=== PATIENT | female | born 1940 | race Caucasian/White ===

== ENCOUNTER 2020-09-29 12:08 | Outpatient (CLI) | payer MEDICARE, SELFPAY ==
--- NOTE | ~2020-09-29 | XR_ITS ---
EXAMINATION: XR knee RT 3V DATE: 09/29/2020 12:57 INDICATION: Right knee osteoarthritis. TECHNIQUE: 3 views of right knee were obtained. COMPARISON: Right knee radiographs 04/04/2019 FINDINGS: There is varus angulation at the knee. No fracture. There is severe osteoarthritis of media l and patellofemoral compartments and mild osteoarthritis of lateral compartment. There is a moderate -sized knee joint effusion. IMPRESSION: 1. Severe right knee osteoarthritis. 2. Moderate-sized right knee joint effusion. Reviewed, dictated and finalized at location A.
--- NOTE | ~2020-09-29 | XR_ITS ---
EXAMINATION: XR knee LT 3V DATE: 09/29/2020 12:57 INDICATION: Left knee osteoarthritis. TECHNIQUE: 3 views of left knee were obtained. COMPARISON: None. FINDINGS: There is varus angulation at the knee. No fracture. There is severe osteoarthritis of media l and patellofemoral compartment and mild osteoarthritis of lateral compartment. There is a small kne e joint effusion. IMPRESSION: 1. Severe left knee osteoarthritis. 2. Small left knee joint effusion. Reviewed, dictated and finalized at location A.
== END 2020-09-29 12:09 | disposition home or self-care (01) ==
LOC: CHSIMG 12:15
PROVIDERS: PCP Family Medicine; Visit Provider Family Medicine
DX: M17.0 Bilateral primary osteoarthritis of knee (principal)
CPT/HCPCS: 73562

== ENCOUNTER 2021-10-17 14:13 | Outpatient (CLI) | payer MEDICARE, SELFPAY ==
--- NOTE | ~2021-10-17 | XR_ITS ---
XR chest 2V DATE: 10/17/2021 14:31 INDICATION: Cough TECHNIQUE: PA and lateral views COMPARISON: 06/05/2014 2 view chest FINDINGS: Normal heart size. No hilar or mediastinal enlargement. Aortic arch calcification. No pulmo nary infiltrate or consolidation, pleural effusion or pulmonary vascular congestion or pneumothorax. Probable cholecystectomy. Degenerative spurring of the thoracic spine. IMPRESSION: No active cardiopulmonary disease Aortic calcification Reviewed, dictated and finalized at location A.
== END 2021-10-17 14:14 | disposition home or self-care (01) ==
LOC: CHSIMG 14:14
PROVIDERS: PCP Family Medicine; Visit Provider Family Medicine
DX: R05.9 Cough, unspecified (principal)
CPT/HCPCS: 71046

== ENCOUNTER 2023-10-02 08:05 | Outpatient (CLI) | payer MEDICARE, SELFPAY ==
--- NOTE | ~2023-10-02 | XR_ITS ---
Right Knee Technique: AP, lateral, and sunrise views were obtained. Clinical History: Pain Findings: No fracture or dislocation is seen. There is advanced medial compartment degenerative carter e with osteophyte formation and medial compartment narrowing. There is intercondylar notch spurring a nd lateral joint line spurring. There is moderate patellofemoral compartment degenerative spurring. S oft tissues are unremarkable. No joint effusion is seen. Impression: Severe degenerative change of the medial compartment. Moderate degenerative change of the patellofemoral compartment. Mild degenerative change of the lateral compartment. Reviewed, dictated and finalized at location M. Impression: Severe degenerative change of the medial compartment. Moderate degenerative change of the patellofemoral compartment. Mild degenerative change of the lateral compartment.
--- NOTE | ~2023-10-02 | XR_ITS ---
Left Knee Technique: AP, lateral, and sunrise views were obtained. Clinical History: Pain Findings: No fracture or dislocation is seen. There is severe degenerative change of the medial min rtment with marked medial compartment narrowing. There is moderate to advanced patellofemoral compart ment degenerative change. There is mild to moderate lateral compartment degenerative change. Soft tis sues are unremarkable. No joint effusion is seen. Impression: Tricompartment osteoarthritis, severe at the medial and patellofemoral compartment. Reviewed, dictated and finalized at location M. Impression: Tricompartment osteoarthritis, severe at the medial and patellofemoral compartm ent.
== END 2023-10-02 08:06 | disposition home or self-care (01) ==
LOC: CHSIMG 08:07
PROVIDERS: PCP Family Medicine; Visit Provider Orthopaedic Surgery
DX: M25.561 Pain in right knee (principal); M25.562 Pain in left knee; M17.0 Bilateral primary osteoarthritis of knee
CPT/HCPCS: 73564

== ENCOUNTER 2024-11-03 15:06 | Outpatient (CLI) | payer MEDICARE, SELFPAY ==
--- NOTE | ~2024-11-03 | XR_ITS ---
EXAM: XR lumbar spine 2-3V DATE: 11/03/2024 15:30 HISTORY: DORSALGIA,RLQ PAIN TO LOW BACK . COMPARISON: 08/27/2017. FINDINGS: 5 nonrib-bearing lumbar-type vertebral bodies. Pedicles intact. 7 mm retrolistheses at L2- 3 and L4-5. Moderate scoliosis. Vertebral body heights preserved. Multilevel disc space narrowing and marginal osteophytosis, severe at L1-2 through L3-4. Severe lower lumbar facet hypertrophy and scler osis, with interspinous narrowing. Scattered vascular calcifications. Cholecystectomy clips. No fract ure or dislocation. IMPRESSION: Lumbar scoliosis. Grade 1 listheses at L2-3 and L4-5. Multilevel severe lumbar degenerati ve disc disease and facet arthropathy. Reviewed, dictated and finalized at location K. IMPRESSION: Lumbar scoliosis. Grade 1 listheses at L2-3 and L4-5. Multilevel se wu lumbar degenerative disc disease and facet arthropathy.
--- NOTE | ~2024-11-03 | XR_ITS ---
EXAM: XR abdomen obstructive series DATE: 11/03/2024 15:30 HISTORY: CONSTIPATION,RLQ PAIN . COMPARISON: None available. FINDINGS: Clear lung bases. Normal bowel gas pattern. No organomegaly. No abnormal abdominal calcifi cation. Lumbar scoliosis and multilevel lumbar degenerative disc disease. Cholecystectomy clips, and individual clips overlying the right lateral abdomen which may represent displaced surgical clips. Mi ld bilateral hip osteoarthritis. Pelvic enthesopathy. IMPRESSION: No radiographic evidence of obstruction or ileus. Reviewed, dictated and finalized at location K.
--- OUTSIDE RECORDS SUMMARY | 2024-11-03 15:11 | XMS_ITS | Patient Health Record ---
Author Organization [facility] Address [address] [place], [place] [address] Care Team Providers Care Reduction Plant Supervisor Name Role Phone WESLEY LACEY Unavailable [phone] Fransico Orellana Unavailable Unavailable MELISSA SEE Unavailable [phone] Allergies No Known Allergies Reason For Referral No Information Vital Signs Height-cm 172.72 cm 12/13/2023 Weight-kg 88.45 kg 12/13/2023 Height 68 in 12/13/2023 Weight 195. lbs 12/13/2023 BMI 29.65 kg/m2 12/13/2023 Encounters Encounter Location Date Provider Diagnosis [address] [id number] 09/11/2024 LACEY OLSON Tinea unguium B35.1 ; Pain in right toe(s) M79.674 ; Pain in left toe(s) M79.675 and Atherosclerosis of [place] arteries of extremities with intermittent claudication, bilateral legs I70.[address] [id number] 12/13/2023 MELISSA SEE Tinea unguium B35.1 ; Pain in right toe(s) M79.674 ; Pain in left toe(s) M79.675 ; Other hammer toe(s) (acquired), right foot M20.41 ; Other hammer toe(s) (acquired), left foot M20.42 and Unspecified atherosclerosis of [place] arteries of extremities, bilateral legs I70.203 [facility] [address] [place], [place] [id number] 02/14/2024 MELISSA SEE Tinea unguium B35.1 ; Pain in right toe(s) M79.674 ; Pain in left toe(s) M79.675 ; Other hammer toe(s) (acquired), right foot M20.41 ; Other hammer toe(s) (acquired), left foot M20.42 and Unspecified atherosclerosis of [place] arteries of extremities, bilateral legs I70.[address] [id number] 04/17/2024 MELISSA SEE Tinea unguium B35.1 ; Pain in right toe(s) M79.674 ; Pain in left toe(s) M79.675 ; Other hammer toe(s) (acquired), right foot M20.41 ; Other hammer toe(s) (acquired), left foot M20.42 and Unspecified atherosclerosis of [place] arteries of extremities, bilateral legs I70.203 [facility] [address] [place], [place] [id number] 07/10/2024 LACEY OLSON Tinea unguium B35.1 ; Pain in right toe(s) M79.674 ; Pain in left toe(s) M79.675 and Atherosclerosis of [place] arteries of extremities with intermittent claudication, bilateral legs I70.213 Assessments Encounter Date Diagnosis (ICD Code) Assessment Notes Treatment Notes Treatment Clinical Notes Section Notes 12/13/2023 Tinea unguium (ICD-10 - B35.1) Aseptic debridement of elongated thickened nails x 10 using sterile nippers, nails were debrided in length and thickness by 30% utilizing a nail nipper without incident. The patient was educated regarding all treatment options that include topical and oral antifungal treatments. I discussed the options of taking a sample of the nail to confirm diagnosis. Nail clippings were not sent for pathology analysis. The patient was educated why and how the fungal infection evolved in their feet and the patient was given information regarding how to prevent further infection. The patient was told to keep feet dry and change socks. The patient was told to be careful with old shoes and excessive sweating. The patient was educated regarding both OTC and prescription treatments. 12/13/2023 Pain in right toe(s) (ICD-10 - M79.674) 02/14/2024 Tinea unguium (ICD-10 - B35.1) Aseptic debridement of elongated thickened nails x 10 using sterile nippers, nails were debrided in length and thickness by 30% utilizing a nail nipper without incident. The patient was educated regarding all treatment options that include topical and oral antifungal treatments. I discussed the options of taking a sample of the nail to confirm diagnosis. Nail clippings were not sent for pathology analysis. The patient was educated why and how the fungal infection evolved in their feet and the patient was given information regarding how to prevent further infection. The patient was told to keep feet dry and change socks. The patient was told to be careful with old shoes and excessive sweating. The patient was educated regarding both OTC and prescription treatments. 02/14/2024 Pain in right toe(s) (ICD-10 - M79.674) 04/17/2024 Tinea unguium (ICD-10 - B35.1) Aseptic debridement of elongated thickened nails x 10 using sterile nippers, nails were debrided in length and thickness by 30% utilizing a nail nipper without incident. The patient was educated regarding all treatment options that include topical and oral antifungal treatments. I discussed the options of taking a sample of the nail to confirm diagnosis. Nail clippings were not sent for pathology analysis. The patient was educated why and how the fungal infection evolved in their feet and the patient was given information regarding how to prevent further infection. The patient was told to keep feet dry and change socks. The patient was told to be careful with old shoes and excessive sweating. The patient was educated regarding both OTC and prescription treatments. 04/17/2024 Pain in right toe(s) (ICD-10 - M79.674) 07/10/2024 Tinea unguium (ICD-10 - B35.1) FUNGAL TOENAILS: Discussed various treatment options for fungal toenails including debridement, topical antifungals, oral antifungals, toenail avulsion, or toenail matrixectomy. NAIL DEBRIDEMENT: Nails 1-5 Bilateral were debrided extensively with nail nippers and emery board, reducing length and girth to pink healthy tissue with any subungual debris and necrotic tissue removed 07/10/2024 Pain in right toe(s) (ICD-10 - M79.674) 09/11/2024 Tinea unguium (ICD-10 - B35.1) FUNGAL TOENAILS: Discussed various treatment options for fungal toenails including debridement, topical antifungals, oral antifungals, toenail avulsion, or toenail matrixectomy. NAIL DEBRIDEMENT: Nails 1-5 Bilateral were debrided extensively with nail nippers and emery board, reducing length and girth to pink healthy tissue with any subungual debris and necrotic tissue removed 09/11/2024 Pain in right toe(s) (ICD-10 - M79.674) 09/11/2024 Pain in left toe(s) (ICD-10 - M79.675) 07/10/2024 Pain in left toe(s) (ICD-10 - M79.675) 04/17/2024 Pain in left toe(s) (ICD-10 - M79.675) 02/14/2024 Pain in left toe(s) (ICD-10 - M79.675) 12/13/2023 Pain in left toe(s) (ICD-10 - M79.675) 12/13/2023 Other hammer toe(s) (acquired), right foot (ICD-10 - M20.41) The patient was educated regarding how to mechanically stabilize their deformity. The patient was given education about shoe recommendations specific for the condition. The patient was educated about custom orthotics and how appropriate shoes and orthotics can prevent further worsening of the deformity. The patient was educated about how bad shoe habits can worsen the condition. NSAIDS, P.T., injections and other conservative treatments were discussed. Both surgical and non surgical treatments were discussed, but conservative options were emphasized. 02/14/2024 Other hammer toe(s) (acquired), right foot (ICD-10 - M20.41) The patient was educated regarding how to mechanically stabilize their deformity. The patient was given education about shoe recommendations specific for the condition. The patient was educated about custom orthotics and how appropriate shoes and orthotics can prevent further worsening of the deformity. The patient was educated about how bad shoe habits can worsen the condition. NSAIDS, P.T., injections and other conservative treatments were discussed. Both surgical and non surgical treatments were discussed, but conservative options were emphasized. 04/17/2024 Other hammer toe(s) (acquired), right foot (ICD-10 - M20.41) The patient was educated regarding how to mechanically stabilize their deformity. The patient was given education about shoe recommendations specific for the condition. The patient was educated about custom orthotics and how appropriate shoes and orthotics can prevent further worsening of the deformity. The patient was educated about how bad shoe habits can worsen the condition. NSAIDS, P.T., injections and other conservative treatments were discussed. Both surgical and non surgical treatments were discussed, but conservative options were emphasized. 07/10/2024 Atherosclerosis of [place] arteries of extremities with intermittent claudication, bilateral legs (ICD-10 - I70.213) 09/11/2024 Atherosclerosis of [place] arteries of extremities with intermittent claudication, bilateral legs (ICD-10 - I70.213) 04/17/2024 Other hammer toe(s) (acquired), left foot (ICD-10 - M20.42) 02/14/2024 Other hammer toe(s) (acquired), left foot (ICD-10 - M20.42) 12/13/2023 Other hammer toe(s) (acquired), left foot (ICD-10 - M20.42) 12/13/2023 Unspecified atherosclerosis of [place] arteries of extremities, bilateral legs (ICD-10 - I70.203) Patient educated on risks and aggravating factors of PVD, including conservative treatment options such as a diet and exercise regimen to aid in slowing progression of vascular disease 02/14/2024 Unspecified atherosclerosis of [place] arteries of extremities, bilateral legs (ICD-10 - I70.203) Patient educated on risks and aggravating factors of PVD, including conservative treatment options such as a diet and exercise regimen to aid in slowing progression of vascular disease 04/17/2024 Unspecified atherosclerosis of [place] arteries of extremities, bilateral legs (ICD-10 - I70.203) Patient educated on risks and aggravating factors of PVD, including conservative treatment options such as a diet and exercise regimen to aid in slowing progression of vascular disease Plan Of Treatment Next Appt Details Provider Name:CORNELL MARKS, 11/20/2024 08:10:00 AM, [address] [place] [address], [id number], Insurance Providers Payer Name Payer Address Payer Phone Subscriber Number Group Number Insured Name Patient Relationship to Insured Coverage Start Date Coverage End Date Medicare Part B [place] [address] [place] [phone] [id number] Ashley Patel Self - patient is the insured [facility] ([facility]) ATTN CLAIMS [address] [place] [address] [id number] Ashley Patel Self - patient is the insured Medical (General) History Medical History History ICD Code Cancer (type of cancer) Arthritis Sleep apnea Diabetic Heart Disease hypertension
--- OUTSIDE RECORDS SUMMARY | 2024-11-03 15:11 | XMS_ITS ---
Author Organization [facility] Address [address] [place], [place] [id number] Care Team Providers Care Or Scrub Tech Name Role Phone LACEY OLSON Unavailable [phone] Fransico Orellana Unavailable Unavailable REASON FOR VISIT Patient presents for at-risk foot care . The patient has painful toenails that cause difficulty with ambulation and shoegear. The onset is gradual Encounters Encounter Location Date Provider Diagnosis [address] [id number] 09/11/2024 LACEY OLSON Tinea unguium B35.1 ; Pain in right toe(s) M79.674 ; Pain in left toe(s) M79.675 and Atherosclerosis of [place] arteries of extremities with intermittent claudication, bilateral legs I70.213 Assessments Encounter Date Diagnosis (ICD Code) Assessment Notes Treatment Notes Treatment Clinical Notes Section Notes 09/11/2024 Tinea unguium (ICD-10 - B35.1) FUNGAL [...] Pain in left toe(s) (ICD-10 - M79.675) 09/11/2024 Atherosclerosis of [place] arteries of extremities with intermittent claudication, bilateral legs (ICD-10 - I70.213) Plan Of Treatment Treatment Notes Assessment Notes Tinea unguium FUNGAL TOENAILS: Discussed various treatment options for fungal toenails including debridement, topical antifungals, oral antifungals, toenail avulsion, or toenail matrixectomy. NAIL DEBRIDEMENT: Nails 1-5 Bilateral were debrided extensively with nail nippers and emery board, reducing length and girth to pink healthy tissue with any subungual debris and necrotic tissue removed Next Appt Details Follow Up: 10-12 Weeks, Reas on: At Risk Foot care, sooner if problems arise Provider Name:CORNELL MARKS, 11/20/2024 08:10:00 AM, [address] [place] [address], [id number], Progress Notes * Wiliam PATELOB:1940 ( 84 yo F)Acc No.[id number]:09/11/2024 Patient: Olga Ashley NAYLOR Provider: Gillian Olson DPM :1940 A ge:84 Y S ex:Female Date:09/11/2024 Address:[address] [place], [place] [id number] Subjective: * Chief Complaints: * 1 . Patient presents for at-risk foot care . The patient has painful toenails that cause difficulty with ambulation and shoegear. The onset is gradual. * HPI: H PI: General care P atient presents to the office for at risk foot care. Patient states that their nails are thickened, elongated and painful. Patient states that it is aggravated by shoe gear. Onset is gradual. Patient denies being diabetic., Patient denies taking blood thinners., Date last seen by Dr. Orellana was 03/2024., Initials mca. sample. * Medical History: C ancer (type of cancer), Arthritis, Sleep apnea, Diabetic, Heart Disease, Hypertension. Objective: * Vitals: * Examination: C onstitutional: Constitutional T he patient is awake, alert, well developed, well groomed and well nourished. D ermatologic: Skin findings: S kin is thin, atrophic and lacking pedal hair. Nail pathology: N ails 1, 2, 3, 4, and 5 bilateral are elongated, thick, discolored, and dystrophic with subungual debris. They are painful to palpation. ? V ascular: Dorsalis pedis pulse: 1 /4 b ilateral. Posterior tibial pulse: 0 /4 b ilateral. Capillary refill: g reater than 3 seconds. Edema: N o edema, bilateral. N eurologic: Gross sensation G ross sensation is intact to light touch.? M usculoskeletal: Muscle Strength M uscle strength is 5/5 in regards to dorsiflexion, plantarflexion, inversion, and eversion in bilateral lower extremities. ? Assessment: * Assessment: 1. T inea unguium - B35.1 (Primary) 2 . P ain in right toe(s) - M79.674? 3. P ain in left toe(s) - M79.675 4 . A therosclerosis of [place] arteries of extremities with intermittent claudication, bilateral legs - I70.213 Plan: * Treatment: * Procedure Codes: 1 1721 DEBRIDE NAIL, 6 OR MORE, Modifiers: Q8 * Follow Up: 1 0-12 Weeks (Reason: At Risk Foot care, sooner if problems arise) * Billing Information: * Visit Code: * Procedure Codes: 23425 DEBRIDE NAIL, 6 OR MORE. Modifiers: Q8 * Electronic signature of LACEY OLSON DPM on 11/03/2024 at 03:11 PM CDT Sign off status: Pending * Provider: Gillian Olson DPM Date: 0 09/11/2024 Generated for Cameron knutson/Yanet/Fransico on: 0 11/03/2024 03:11 PM CDT History and Physical Notes * HPI (History of Present Illness) Category Sub-Category Detail Notes Category Not es HPI General care Patient presents to the office for at risk foot care. Patient states that their nails are thickened, elongated and painful. Patient states that it is aggravated by shoe gear. Onset is gradual. Patient denies being diabetic., Patient denies taking blood thinners., Date last seen by Dr. Orellana was 03/2024., Initials mca sample Examination Category Sub-Category Detail Notes Category Not es Dermatologic Skin findings: Skin is thin, at rophic and lacking pedal hair Nail pathology: Nails 1, 2, 3, 4, an d 5 bilateral are elongated, thick, discolored, and dystrophic with subungual debris. They are painful to palpation Neurologic Gross sensation Gross sensation is intact to light touch Vascular Dorsalis pedis pulse: 1/4 bilateral Edema: No edema, bilateral Capillary refill: greater than 3 secon ds Posterior tibial pulse: 0/4 bilateral Musculoskeletal Muscle Strength Muscle strength is 5/5 in regards to dorsiflexion, plantarflexion, inversion, and eversion in bilateral lower extremities Constitutional Constitutional The patient is a wake, alert, well developed, well groomed and well nourished
--- OUTSIDE RECORDS SUMMARY | 2024-11-03 15:11 | XMS_ITS ---
Author Organization [facility] Address [address] [place], [place] [address] Care Team Providers Care Water And Sewer Systems Superintendent Name Role Phone LACEY OLSON Unavailable [phone] Fransico Orellana Unavailable Unavailable MELISSA SEE Unavailable [phone] REASON FOR VISIT *General care Encounters Encounter Location Date Provider Diagnosis [facility] [address], [place] [id number] 07/03/2024 MELISSA SEE Plan Of Treatment Next Appt Details Provider Name:CORNELL MARKS, 11/20/2024 08:10:00 AM, [address] [place] [address], [id number], Progress Notes * Wiliam PATELOB:1940 ( 84 yo F)Acc No.[id number]:07/03/2024 Patient: Olga CYNDY Ashley Provider: Parker SEE :1940 A ge:84 Y S ex:Female Date:07/03/2024 Address:[address] [place], [id number] Subjective: * Chief Complaints: * 1 . *General care. * Medical History: Objective: * Vitals: Assessment: Plan: * Treatment: * Billing Information: * Visit Code: * Procedure Codes: * Electronic signature of ASHLEY SEE DPM on 11/03/2024 at 03:10 PM CDT Sign off status: Pending * Provider: Parker SEE Date: 0 07/03/2024 Generated for Cameron Hayes/Fransico on: 0 11/03/2024 03:10 PM CDT
--- OUTSIDE RECORDS SUMMARY | 2024-11-03 15:11 | XMS_ITS ---
Author Organization [facility] Address [address] [place], [place] [address] Care Team Providers Care Simulation Educator Name Role Phone LACEY OLSON Unavailable [phone] Fransico Orellana Unavailable Unavailable REASON FOR VISIT Patient presents for at-risk foot care . The patient has painful toenails that cause difficulty with ambulation and shoegear. The onset is gradual Encounters Encounter Location Date Provider Diagnosis [facility] [address], [place] [id number] 07/10/2024 LACEY OLSON Tinea unguium B35.1 ; Pain in right toe(s) M79.674 ; Pain in left toe(s) M79.675 and Atherosclerosis of [place] arteries of extremities with intermittent claudication, bilateral legs I70.213 Assessments Encounter Date Diagnosis (ICD Code) Assessment Notes Treatment Notes Treatment Clinical Notes Section Notes 07/10/2024 Tinea unguium (ICD-10 - B35.1) FUNGAL [...] in right toe(s) (ICD-10 - M79.674) 07/10/2024 Pain in left toe(s) (ICD-10 - M79.675) 07/10/2024 Atherosclerosis of [place] arteries of extremities with intermittent claudication, bilateral [...] arise Provider Name:CORNELL MARKS, 11/20/2024 08:10:00 AM, [address] [place] [address], [id number], Progress Notes * Wiliam APTELOB:1940 ( 84 yo F)Acc No.[id number]:07/10/2024 Patient: Olga CYNDY Ashley Provider: Gillian Olson DPM :1940 A ge:84 Y S ex:Female Date:07/10/2024 Address:[address] [place], [place] [id number] Subjective: * Chief Complaints: * Jelly goyal presents for at-risk foot care . The patient has painful toenails that cause difficulty with ambulation and shoegear. The onset is gradual * HPI: H PI: General care Jelly goyal presents to the office for at risk foot care. Patient states that their nails are thickened, elongated and painful. Patient states that it is aggravated by shoe gear. Onset is gradual. Patient denies being diabetic., Patient denies taking blood thinners., Date last seen by Dr. Orellana was 03/2025., Initials mca. sample. * Medical History: * Surgical History: * Hospitalization/Major Diagno stic Procedure: * Medications: Objective: * Vitals: * Examination: C onstitutional: [...] - M79.675 4 . A therosclerosis of [place] arteries of extremities with intermittent claudication, bilateral legs - I70.213 Plan: * Treatment: * Procedure Codes: 1 1721 DEBRIDE NAIL, 6 OR MORE, Modifiers: Q8 * Follow Up: 1 0-12 Weeks (Reason: At Risk Foot care, sooner if problems arise) * Billing Information: * Visit Code: * Procedure Codes: 28029 DEBRIDE NAIL, 6 OR MORE. Modifiers: Q8 * ICATION SECURITY ENGINEER Sign off status: Completed true * Provider: Gillian Olson DPM Date: 0 07/10/2024 Generated for Cameron knutson/Yanet/Fransico on: 0 11/03/2024 03:10 PM CDT History and Physical Notes * [...] Date last seen by Dr. Orellana was 03/2025., Initials mca sample Examination Category Sub-Category Detail [...]
--- OUTSIDE RECORDS SUMMARY | 2024-11-03 15:11 | XMS_ITS | Clinical Summary ---
Author Organization [facility] Address [address] [place] [address] Care Team Providers Care Slimer Name Role Phone Unavailable Primary Care Provider Unavailabl e Social History Tobacco Use Types Packs/Day Years Used Date Smoking Tobacco: Never Comments Unknown Sex and Gender Information Value Date Recorded Sex Assigned at Not on file Legal Sex Female 10:24 PM CDT Gender Identity Not on file Sexual Orientation Not on file Last Filed Vital Signs Vital Sign Reading Time Taken Comments Blood Pressure 140/80 05/12/2010 2:37 PM SCOURING PADS SUPERVISOR Pulse 74 05/12/2010 2:37 PM SCOURING PADS SUPERVISOR Temperature - - Respiratory Rate 18 05/12/2010 2:37 PM SCOURING PADS SUPERVISOR Oxygen Saturation - - Inhaled Oxygen Concentration - - Weight 90.7 kg (200 lb) 05/12/2010 2:37 PM SCOURING PADS SUPERVISOR Height 172.7 cm (5' 8 ) 05/12/2010 2:37 PM SCOURING PADS SUPERVISOR Body Mass Index 30.41 05/12/2010 2:37 PM SCOURING PADS SUPERVISOR Plan of Treatment Health Maintenance Due Date Last Done Comments DTaP, Tdap and Td Vaccines ( 1 - Tdap) 1959 Pneumococcal Vaccine: 50+ Ye ars (1 of 1 - PCV) 1990 Zoster Vaccines (1 of 2) 1990 Dexa Scan (General) 2005 RSV Immunization or 60+ Years (1 - 1-dose 75+ series) 2015 COVID-19 Vaccine (2023-2 5 season) 2024 Meningococcal B Vaccine Aged Out No l onger eligible based on patient's age to complete this topic Meningococcal Vaccine Aged Out No azar caren eligible based on patient's age to complete this topic RSV Immunizations Under 20 Months Aged Out No longer eligible based on patient's age to complete this topic
== END 2024-11-03 15:07 | disposition home or self-care (01) ==
PROVIDERS: PCP Family Medicine; Visit Provider Family Medicine
DX: K59.00 Constipation, unspecified (principal); M54.9 Dorsalgia, unspecified; M41.86 Other forms of scoliosis, lumbar region; M51.369 Other intervertebral disc degeneration, lumbar region without mention of lumbar back pain or lower extremity pain
CPT/HCPCS: 72100; 74019

== ENCOUNTER 2025-05-13 13:22 | Outpatient (CLI) | payer MEDICARE, SELFPAY ==
--- OUTSIDE RECORDS SUMMARY | 2024-07-03 07:10 | XMS_ITS ---
Author Organization [facility] Address [address] [place], [place] [address] Care Team Providers Care Legal Secretary Receptionist Name Role Phone LACEY OLSON Unavailable [phone] Fransico Orellana Unavailable Unavailable MELISSA SEE Unavailable [phone] REASON FOR VISIT *General care Encounters Encounter Location Date Provider Diagnosis [facility] [address] [place], [place] [id number] 07/03/2024 MELISSA SEE Plan Of Treatment Next Appt Details Provider Name:CORNELL MARKS, 06/11/2025 08:10:00 AM, [address] [place] [address], [id number], Progress Notes * Wiliam PATELOB:1940 ( 85 yo F)Acc No.[id number]:07/03/2024 Patient: Ashley Booth Provider: Parker SEE :1940 A ge:84 Y S ex:Female Date:07/03/2024 Address:[address] [place], [id number] Subjective: * Chief Complaints: * * General care * Electronic signature of ASHLEY SEE DPM on 05/13/2025 at 07:53 PM SAP PORTAL DEVELOPER Sign off status: Pending * Provider: Parker SEE Date: 0 07/03/2024 Generated for Cameron knutson/Yanet/Fransico on: 1 07/13/2024 07:53 PM SAP PORTAL DEVELOPER
--- OUTSIDE RECORDS SUMMARY | 2024-11-20 02:10 | XMS_ITS ---
Author Organization [facility] Address [address] [place], [place] [address] Care Team Providers Care Lead Care Manager Name Role Phone LACEY OLSON Unavailable [phone] Fransico Orellana Unavailable Unavailable CORNELL DA SILVA Unavailable [phone] Allergies No Known Allergies REASON FOR VISIT *General care Vital Signs Height 68 in 11/20/2024 Weight 195.0 lbs 11/20/2024 BMI 29.65 kg/m2 11/20/2024 Height-cm 172.72 cm 11/20/2024 Weight-kg 88.45 kg 11/20/2024 Encounters Encounter Location Date Provider Diagnosis [address] [id number] 11/20/2024 CORNELL DA SILVA Tinea unguium B35.1 ; Pain in right toe(s) M79.674 ; Pain in left toe(s) M79.675 and Atherosclerosis of [place] arteries of extremities with intermittent claudication, bilateral legs I70.213 Assessments Encounter Date Diagnosis (ICD Code) Assessment Notes Treatment Notes Treatment Clinical Notes Section Notes 11/20/2024 Tinea unguium (ICD-10 - B35.1) FUNGAL TOENAILS: Discussed various treatment options for fungal toenails including debridement, topical antifungals, oral antifungals, toenail avulsion, or toenail matrixectomy. NAIL DEBRIDEMENT: Nails 1-5 Bilateral were debrided extensively with nail nippers and emery board, reducing length and girth to pink healthy tissue with any subungual debris and necrotic tissue removed 11/20/2024 Pain in right toe(s) (ICD-10 - M79.674) 11/20/2024 Pain in left toe(s) (ICD-10 - M79.675) 11/20/2024 Atherosclerosis of [place] arteries of extremities with intermittent claudication, bilateral [...] sooner if problems arise Provider Name:CORNELL MARKS, 06/11/2025 08:10:00 AM, [address] [place] [address], [phone], History and Physical Notes * HPI (History [...] blood thinners., Date last seen by Dr. Mccray was October 2024., Initials LB Examination Category Sub-Category Detail Notes Category Not [...] well developed, well groomed and well nourished Progress Notes * Wiliam PATELOB:1940 ( 85 yo F)Acc No.[id number]:11/20/2024 Patient: Ashley Booth Provider: Zheng DA SILVA :1940 A ge:84 Y S ex:Female Date:11/20/2024 Address:[address] [place], [place] [id number] Subjective: * Chief Complaints: * * General care * HPI: H PI: General care P atient presents to the office for at risk foot care. Patient states that their nails are thickened, elongated and painful. Patient states that it is aggravated by shoe gear. Onset is gradual. Patient denies being diabetic., Patient denies taking blood thinners., Date last seen by Dr. Mccray was October 2024., Initials LB. * ROS: G eneral / Constitutional: Patient denies w eakness. M usculoskeletal: Patient complains of j oint stiffness, hammertoes. ? P eripheral Vascular: Patient denies b lanching of skin, cold extremities, decreased sensation in extremities. S kin: Patient complains of f ungal nails, nail changes. ? N eurologic: Patient denies d izziness, gait abnormality, headache. * Medical History: Cancer (type of cancer) Arthritis Sleep apnea Diabetic Heart Disease Hypertension Medical History Verified * Surgical History: No Surgical History documented. Surgical History verified. * Hospitalization/Major Diagno stic Procedure: No Hospitalization Documented. Hospitalization Verified. * Family History: N o Family History documented.. F amily History Verified.. * Social History: Social History Verified. No Social History documented. * Medications: N one * Allergies: N .K.D.A.yesAllergies Verified. Objective: * Vitals: S hoe Size: 9, Wt: 195.0 lbs, Wt-k.45 kg, Ht: 68 in, Ht-cm: 172.72 cm, BMI: 29.65 Index, Body Surface Area: 2.06. * Examination: C onstitutional: Constitutional T he [...] - M79.675 4 . A therosclerosis of [place] arteries of extremities with intermittent claudication, bilateral legs - I70.213 Plan: * Treatment: * Immunizations: Immunization record has been reviewed and updated. * Procedure Codes: 1 1721 DEBRIDE NAIL, 6 OR MORE, Modifiers: Q8 * Follow Up: 1 0-12 Weeks (Reason: At Risk Foot care, sooner if problems arise) Billing Information: * Procedure Codes: 73843 DEBRIDE NAIL, 6 OR MORE. Modifiers: Q8 * Electronic signature of PATTI DA SILVA DPM on 05/13/2025 at 07:53 PM BUZZLE BUFFER Sign off status: Pending * Provider: Zheng DA SILVA Date: 0 11/20/2024 Generated for Cameron knutson/Yanet/Fransico on: 1 07/13/2024 07:53 PM BUZZLE BUFFER
--- OUTSIDE RECORDS SUMMARY | 2025-01-22 02:10 | XMS_ITS ---
Author Organization [facility] Address [address] [place], [place] [address] Care Team Providers Care Surgical Elastic Knitter Name Role Phone LACEY OLSON Unavailable [phone] Fransico Orellana Unavailable Unavailable CORNELL DA SILVA Unavailable [phone] Allergies No Known Allergies REASON FOR VISIT *General care Medications Medication SIG (Take, Route, Frequency, Duration) Notes Start Date End Date Status Citalopram & Diet Manage Prod Active Vitamin D Active PreserVision AREDS 2 - Capsule as directed Orally Active Omeprazole 10 MG Capsule Delayed Release 1 capsule 1/2 to 1 hour before morning meal Orally Once a day Active Vital Signs Height 68 in 01/22/2025 Weight 180 lbs 01/22/2025 BMI 27.37 kg/m2 01/22/2025 Height-cm 172.72 cm 01/22/2025 Weight-kg 81.65 kg 01/22/2025 Encounters Encounter Location Date Provider Diagnosis [address] [id number] 01/22/2025 CORNELL DA SILVA Tinea unguium B35.1 ; Pain in right toe(s) M79.674 ; Pain in left toe(s) M79.675 and Atherosclerosis of [place] arteries of extremities with intermittent claudication, bilateral legs I70.213 Assessments Encounter Date Diagnosis (ICD Code) Assessment Notes Treatment Notes Treatment Clinical Notes Section Notes 01/22/2025 Tinea unguium (ICD-10 - B35.1) FUNGAL TOENAILS: Discussed various treatment options for fungal toenails including debridement, topical antifungals, oral antifungals, toenail avulsion, or toenail matrixectomy. NAIL DEBRIDEMENT: Nails 1-5 Bilateral were debrided extensively with nail nippers and emery board, reducing length and girth to pink healthy tissue with any subungual debris and necrotic tissue removed 01/22/2025 Pain in right toe(s) (ICD-10 - M79.674) 01/22/2025 Pain in left toe(s) (ICD-10 - M79.675) 01/22/2025 Atherosclerosis of elim [place] arteries of extremities with intermittent claudication, bilateral [...] arise Provider Name:CORNELL MARKS, 06/11/2025 08:10:00 AM, [address] [place] [address], [id number], History and Physical Notes * HPI (History [...] Date last seen by Dr. Orellana was 10/2024., Initials nd Examination Category Sub-Category Detail Notes Category Not es Dermatologic Skin findings: Skin is thin, at rophic and lacking pedal hair Nail pathology: Nails 1, 2, 3, 4, an d 5 bilateral are elongated, thick, discolored, and dystrophic with subungual debris. They are painful to palpation Neurologic Gross sensation Gross sensation is intact to light touch Vascular Dorsalis pedis pulse: 06/28 bilateral Edema: No edema, bilateral Capillary refill: greater than 3 secon ds Posterior tibial pulse: 0/4 bilateral Musculoskeletal Muscle Strength Muscle strength is 5/5 in regards to dorsiflexion, plantarflexion, inversion, and eversion in bilateral lower extremities Constitutional Constitutional The patient is a wake, alert, well developed, well groomed and well nourished Progress Notes * Wiliam PATELOB:1940 ( 85 yo F)Acc No.[id number]:01/22/2025 Patient: Ashley Booth Provider: Zheng DA SILVA :1940 A ge:84 Y S ex:Female Date:01/22/2025 Address:[address] [place], [place] [id number] Subjective: * Chief Complaints: * * General care * HPI: H PI: General care P atient presents to the office for at risk foot care. Patient states that their nails are thickened, elongated and painful. Patient states that it is aggravated by shoe gear. Onset is gradual. Patient denies being diabetic., Patient denies taking blood thinners., Date last seen by Dr. Orellana was 10/2024., Initials nd. * ROS: G eneral / Constitutional: Patient [...] Hypertension Medical History Verified * Surgical History: Denies Past Surgical History. Surgical History verified. * Hospitalization/Major Diagno stic Procedure: Denies Past Hospitalization. Hospitalization Verified. * Family History: N o Family History documented.. F amily History Verified.. * Social History: Social History Verified. No Social History documented. * Medications: T akingVitamin D Citalopram & Diet Manage Prod Omeprazole 10 MG Capsule Delayed Release 1 capsule 1/2 to 1 hour before morning meal Orally Once a day PreserVision AREDS 2 - Capsule as directed Orally Medication List reviewed and reconciled with the patientTaking Vitamin D Taking Citalopram & Diet Manage Prod Taking Omeprazole 10 MG Capsule Delayed Release 1 capsule 1/2 to 1 hour before morning meal Orally Once a day Taking PreserVision AREDS 2 - Capsule as directed Orally Medication List reviewed and reconciled with the patient * Allergies: N .K.D.A.yesAllergies Verified. Objective: * Vitals: S hoe Size: 9, Wt: 180 lbs, Wt-k.65 kg, Ht: 68 in, Ht-cm: 172.72 cm, BMI: 27.37 Index, Body Surface Area: 1.98. * Examination: C onstitutional: Constitutional T he [...] - M79.675 4 . A therosclerosis of [place] arteries of extremities with intermittent claudication, bilateral legs - I70.213 Plan: * Treatment: * Procedure Codes: 1 1721 DEBRIDE NAIL, 6 OR MORE, Modifiers: Q8 * Follow Up: 1 0-12 Weeks (Reason: At Risk Foot care, sooner if problems arise) Billing Information: * Procedure Codes: 22628 DEBRIDE NAIL, 6 OR MORE. Modifiers: Q8 * Electronic signature of PATTI DA SILVA DPM on 05/13/2025 at 07:53 PM KNIFER UP Sign off status: Pending * Provider: Zheng DA SILVA Date: 0 01/22/2025 Generated for Cameron knutson/Yanet/Fransico on: 1 07/13/2024 07:53 PM KNIFER UP
--- OUTSIDE RECORDS SUMMARY | 2025-03-26 02:20 | XMS_ITS ---
Author Organization [facility] Address [address] [place], [place] [address] Care Team Providers Care Etch Operator Semiconductor Wafers Name Role Phone LACEY OLSON Unavailable [phone] Fransico Orellana Unavailable Unavailable CORNELL DA SILVA Unavailable [phone] Allergies No Known Allergies REASON FOR VISIT *General care Medications Medication SIG (Take, Route, Frequency, Duration) Notes Start Date End Date Status Vitamin D Active Citalopram & Diet Manage Prod Active Omeprazole 10 MG Capsule Delayed Release 1 capsule 1/2 to 1 hour before morning meal Orally Once a day Active PreserVision AREDS 2 - Capsule as directed Orally Active Vital Signs Height 68 in 03/26/2025 Weight 180 lbs 03/26/2025 BMI 27.37 kg/m2 03/26/2025 Height-cm 172.72 cm 03/26/2025 Weight-kg 81.65 kg 03/26/2025 Encounters Encounter Location Date Provider Diagnosis [address] [id number] 03/26/2025 CORNELL DA SILVA Tinea unguium B35.1 ; Pain in right toe(s) M79.674 ; Pain in left toe(s) M79.675 and Atherosclerosis of [place] arteries of extremities with intermittent claudication, bilateral legs I70.213 Assessments Encounter Date Diagnosis (ICD Code) Assessment Notes Treatment Notes Treatment Clinical Notes Section Notes 03/26/2025 Tinea unguium (ICD-10 - B35.1) FUNGAL TOENAILS: Discussed various treatment options for fungal toenails including debridement, topical antifungals, oral antifungals, toenail avulsion, or toenail matrixectomy. NAIL DEBRIDEMENT: Nails 1-5 Bilateral were debrided extensively with nail nippers and emery board, reducing length and girth to pink healthy tissue with any subungual debris and necrotic tissue removed 03/26/2025 Pain in right toe(s) (ICD-10 - M79.674) 03/26/2025 Pain in left toe(s) (ICD-10 - M79.675) 03/26/2025 Atherosclerosis of [place] arteries of extremities with intermittent claudication, bilateral [...] arise Provider Name:CORNELL MARKS, 06/11/2025 08:10:00 AM, [address] [place] [address], [phone], History and Physical Notes * HPI (History of Present Illness) Category Sub-Category Detail Notes Category Not es HPI General care Patient presents to the office for at risk foot care. Patient states that their nails are thickened, elongated and painful. Patient states that it is aggravated by shoe gear. Onset is gradual. Patient denies being diabetic., Patient denies taking blood thinners., Initials ab Examination Category Sub-Category Detail Notes Category Not [...] * Wiliam PATELOB:1940 ( 85 yo F)Acc No.[id number]:03/26/2025 Patient: Ashley Booth Provider: Zheng DA SILVA :1940 A ge:84 Y S ex:Female Date:03/26/2025 Address:[address] [place], [place] [id number] Subjective: * Chief Complaints: * * General care * HPI: H PI: General care P atient presents to the office for at risk foot care. Patient states that their nails are thickened, elongated and painful. Patient states that it is aggravated by shoe gear. Onset is gradual. Patient denies being diabetic., Patient denies taking blood thinners., Initials ab. * ROS: G eneral / Constitutional: Patient [...] reconciled with the patient * Allergies: N .K.TeoyesAllergies Verified. Objective: * Vitals: S hoe Size: [...] - M79.675 4 . A therosclerosis of [place] arteries of extremities with intermittent claudication, bilateral legs - I70.213 Plan: * Treatment: * Preventive Medicine: Screenings: F all risk screening F all Risk Assessment: N o falls in the past year. * Follow Up: 1 0-12 Weeks (Reason: At Risk Foot care, sooner if problems arise) Billing Information: * Procedure Codes: * Electronic signature of PATTI DA SILVA DPM on 05/13/2025 at 07:53 PM WET INSPECTOR OPTICAL GLASS Sign off status: Pending * Provider: Zheng DA SILVA Date: 1 Generated for Printi ng/Yanet/Fransico on: 1 07/13/2024 07:53 PM WET INSPECTOR OPTICAL GLASS
--- NOTE | 2025-05-13 | CONSULT_PTH ---
PATIENT: Ashley Patel LOC: [facility]#:[id number] AGE/SX: 85/F ROOM: RE05/13/[address]: Carlene Andrea MD : 1940 BED: DIS: 05/13/2025 SPEC #: [id number] RECD: 05/13/25 13:43 STATUS: BRANDIE REQ #: [id number] ARNALDO: 05/13/25 00:[address]: Carlene Andrea DEPT: [facility] Consult RECD BY: Amelia Eid MT,([facility]) ENTERED: 05/13/25 13:45 SP TYPE: Consult OTHR DR: Fransico Orellana MD Tissues: A - Peripheral Smear Procedures: Hematology Consult
[2025-05-13 13:41] LABS: Hematocrit 32.4 % (35.0-42.0); Hemoglobin 10.6 g/dL (11.7-13.8); Immature Granulocyte Percent A 0.3 % (0.0-0.0); Immature Reticulocyte Fraction 7.1 % (2.0-16.52); Lymphocytes Absolute Auto 1.71 K/mm3 (1.10-4.50); Mean Corpuscular HGB Conc 32.7 g/dL (32-36); Mean Corpuscular Hemoglobin 30.6 pg (27.0-31.0); Mean Corpuscular Volume 93.6 fL (78.0-102.0); Nucleated Red Blood Cells Absolute Auto 0.00 K/mm3 (0.00-0.00); Nucleated Red Blood Cells Perc 0.0 % (0-0.0); Platelet Count Result 172 K/mm3 (150-420); Red Blood Count 3.46 M/mm3 (4.20-5.40); Reticulocyte Hemoglobin Conten 35.3 pg (28.0-35.0); Reticulocytes Absolute 0.03 M/mm3 (0.02-0.10); White Blood Count 6.9 K/mm3 (4.8-10.8)
[2025-05-13 14:05] LABS: Alanine Aminotransferase 15 U/L (6-35); Albumin Level 4.3 g/dL (3.5-5.1); Alkaline Phosphatase 118 U/L (38-126); Anion Gap 9 mmol/L (4-12); Aspartate Amino Transferase 28 U/L (14-36); Bilirubin,Total 0.5 mg/dL (0.2-1.3); Blood Urea Nitrogen 27 mg/dL (7-17); Calcium 9.1 mg/dL (8.4-10.2); Carbon Dioxide 32 mmol/L (22-30); Chloride 101 mmol/L (98-107); Estimated Glomerular Filt Rate 46; Glucose 98 mg/dL (65-110); Osmolality Calculated 299 mOsm/kg (285-295); Potassium 3.5 mmol/L (3.4-5.0); Sodium 142 mmol/L (137-145); Total Protein 6.9 g/dL (6.3-8.2)
[2025-05-13 14:18] LABS: Iron 50 ug/dL (37-170)
[2025-05-13 14:42] LABS: Percent Iron Saturation 22 % (20-50)
[2025-05-13 15:40] LABS: Vitamin B12 496.0 pg/mL (239-931)
--- OUTSIDE RECORDS SUMMARY | 2025-05-13 19:53 | XMS_ITS | Clinical Summary ---
Author Organization [facility] Address [address] [place] [address] Care Team Providers Care Mineral Technologist Name Role Phone Unavailable Primary Care Provider [...] Comments Blood Pressure 140/80 05/12/2010 2:37 PM AIRPORT SECURITY SCREENER Pulse 74 05/12/2010 2:37 PM AIRPORT SECURITY SCREENER Temperature - - Respiratory Rate 18 05/12/2010 2:37 PM AIRPORT SECURITY SCREENER Oxygen Saturation - - Inhaled Oxygen Concentration - - Weight 90.7 kg (200 lb) 05/12/2010 2:37 PM AIRPORT SECURITY SCREENER Height 172.7 cm (5' 8) 05/12/2010 2:37 PM AIRPORT SECURITY SCREENER Body Mass Index 30.41 05/12/2010 2:37 PM AIRPORT SECURITY SCREENER Plan of Treatment Health Maintenance Due Date Last Done Comments DTaP, Tdap and Td Vaccines ( 1 - Tdap) 1959 Pneumococcal Vaccine: 50+ Ye ars (1 of 1 - PCV) 1990 Zoster Vaccines (1 of 2) 1990 RSV Immunization or 60+ Years (1 - 1-dose 75+ series) 2015 COVID-19 Vaccine ( - 2024-2 6 season) 2025 Influenza Adult (#1) 2025 Hepatitis A Vaccines Aged Out No long er eligible based on patient's age to complete this topic Meningococcal B Vaccine Aged Out No l onger eligible based on patient's age to complete this topic Meningococcal Vaccine Aged Out No azar caren eligible based on patient's age to complete this topic RSV Immunizations Under 20 Months Aged Out No longer eligible based on patient's age to complete this topic
--- OUTSIDE RECORDS SUMMARY | 2025-05-13 19:53 | XMS_ITS | Patient Health Record ---
Author Organization [facility] Address [address] [place], [place] [id number] Care Team Providers Care Industrial Hygienist Name Role Phone LACEY OLSON Unavailable [phone] Fransico Orellana Unavailable Unavailable MELISSA SEE Unavailable [phone] CORNELL DA SILVA Unavailable [phone] Allergies No Known Allergies Reason For Referral No Information Medications Medication SIG (Take, Route, Frequency, Duration) Notes Start Date End Date Status Vitamin D Active Citalopram & Diet Manage Prod Active Omeprazole 10 MG Capsule Delayed Release 1 capsule 1/2 to 1 hour before morning meal Orally Once a day Active PreserVision AREDS 2 - Capsule as directed Orally Active Vital Signs Height-cm 172.72 cm 03/26/2025 Weight-kg 81.65 kg 03/26/2025 Height 68 in 03/26/2025 Weight 180 lbs 03/26/2025 BMI 27.37 kg/m2 03/26/2025 Encounters Encounter Location Date Provider Diagnosis [address] [id number] 11/20/2024 CORNELL DA SILVA Tinea unguium B35.1 ; Pain in right toe(s) M79.674 ; Pain in left toe(s) M79.675 and Atherosclerosis of [place] arteries of extremities with intermittent claudication, bilateral legs I70.[address] [id number] 01/22/2025 CORNELL DA SILVA Tinea unguium B35.1 ; Pain in right toe(s) M79.674 ; Pain in left toe(s) M79.675 and Atherosclerosis of [place] arteries of extremities with intermittent claudication, bilateral legs I70.213 [facility] [address] [place], [place] [id number] 03/26/2025 CORNELL DA SILVA Tinea unguium B35.1 ; Pain in right toe(s) M79.674 ; Pain in left toe(s) M79.675 and Atherosclerosis of [place] arteries of extremities with intermittent claudication, bilateral legs I70.213 [facility] [address], [place] [id number] 07/10/2024 LACEY SNOOK Tinea unguium B35.1 ; Pain in right toe(s) M79.674 ; Pain in left toe(s) M79.675 and Atherosclerosis of [place] arteries of extremities with intermittent claudication, bilateral legs I70.[address] [id number] 09/11/2024 LACEY SNOOK Tinea unguium B35.1 ; Pain in right toe(s) M79.674 ; Pain in left toe(s) M79.675 and Atherosclerosis of [place] arteries of extremities with intermittent claudication, bilateral [...] in right toe(s) (ICD-10 - M79.674) 11/20/2024 Tinea unguium (ICD-10 - B35.1) FUNGAL [...] in right toe(s) (ICD-10 - M79.674) 01/22/2025 Tinea unguium (ICD-10 - B35.1) FUNGAL [...] in right toe(s) (ICD-10 - M79.674) 03/26/2025 Tinea unguium (ICD-10 - B35.1) FUNGAL [...] in left toe(s) (ICD-10 - M79.675) 01/22/2025 Pain in left toe(s) (ICD-10 - M79.675) 11/20/2024 Pain in left toe(s) (ICD-10 - M79.675) 09/11/2024 Pain in left toe(s) (ICD-10 - M79.675) 07/10/2024 Pain in left toe(s) (ICD-10 - M79.675) 07/10/2024 Atherosclerosis of [place] arteries of extremities with intermittent claudication, bilateral legs (ICD-10 - I70.213) 09/11/2024 Atherosclerosis of [place] arteries of extremities with intermittent claudication, bilateral legs (ICD-10 - I70.213) 11/20/2024 Atherosclerosis of [place] arteries of extremities with intermittent claudication, bilateral legs (ICD-10 - I70.213) 01/22/2025 Atherosclerosis of [place] arteries of extremities with intermittent claudication, bilateral legs (ICD-10 - I70.213) 03/26/2025 Atherosclerosis of [place] arteries of extremities with intermittent claudication, bilateral legs (ICD-10 - I70.213) Plan Of Treatment Next Appt Details Provider Name:CORNELL MARKS, 06/11/2025 08:10:00 AM, [address] [place] [address], [id number], Insurance Providers Payer Name Payer Address Payer Phone Subscriber Number Group Number Insured Name Patient Relationship to Insured Coverage Start Date Coverage End Date Medicare Part B [place] [address] [place] [address] [id number] Ashley Patel Self - patient is the insured [facility] ([facility]) ATTN CLAIMS [address] [place] [address] [id number] Ashley Patel Self - patient is the insured Medical (General) History Medical History History ICD Code Cancer (type of cancer) Arthritis Sleep apnea Diabetic Heart Disease hypertension
[2025-05-14 08:41] LABS: Immunoglobulin A 186 mg/dL (70-400); Immunoglobulin G 1120 mg/dL (700-1600); Immunoglobulin M 63 mg/dL (40-230)
[2025-05-14 15:09] LABS: Albumin 3.7 g/dL (2.9-4.4); Alpha-1-Globulin 0.2 g/dL (0.0-0.4); Alpha-2-Globulin 0.8 g/dL (0.4-1.0); Gamma Globulin 1.1 g/dL (0.4-1.8)
[2025-05-14 18:08] LABS: Free Lambda Lt Chains, Serum 30.9 mg/L (5.7-26.3); Kappa/Lambda Ratio, Serum 1.02 (0.26-1.65)
[2025-05-15 14:08] LABS: Immunoglobulin A, Qn 201 mg/dL (64-422); Immunoglobulin G, Qn 1101 mg/dL (586-1602); Immunoglobulin M, Qn 64 mg/dL (26-217)
== END 2025-05-13 13:23 | disposition home or self-care (01) ==
LOC: CHSLAB 13:24
PROVIDERS: PCP Family Medicine; Visit Provider Internal Medicine Hematology
DX: D64.9 Anemia, unspecified (principal)
CPT/HCPCS: 36415; 80053; 82607; 82668; 82746; 82784; 83521; 83540; 83550; 83615; 84155; 84165; 85025; 85046; 86334; 86880